=== PATIENT | female | born 1940 | race African-American/Black ===

== ENCOUNTER 2018-08-06 16:15 | Emergency (ER) | payer OTHER ==
[~2018-08-06] VITALS: Ht 170.2 cm; Wt 63.5 kg
[2018-08-06] MEDS ORDERED: LISINOPRIL5 MG ORAL (16:22)
[2018-08-06] MEDS ORDERED: FUROSEMIDE10 MG/1 M2 PO (16:23)
[2018-08-06] MEDS ORDERED: ASPIRIN-LOW81 MG ORAL (16:23)
[2018-08-06 16:25] VITALS: BP 151/93
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
[2018-08-06] MEDS ORDERED: Acetaminophen 500mg (ES) tab ORAL ONE (16:45)
[2018-08-06] MEDS ORDERED: TYLENOL EXTRA500 MG ORAL (17:20)
[2018-08-06] MEDS ORDERED: NAPROXEN500 M2 ORAL (17:20)
[2018-08-06 17:28] VITALS: BP 152/91
--- NOTE | 2018-08-07 11:32 | Diagnostic Imaging Report ---
Indication: Left sided rib pain. Trauma. Findings: 4 views of the left chest wall was obtained for evaluation of the ribs. There is no acute fracture identified. There is no soft tissue swelling demonstrated. The lung is essentially clear. There is no pneumothorax. The costophrenic angle is sharp. Other osseous structures visualized are unremarkable. Osteopenia and pacemaker are noted. Impression: Negative left unilateral rib series
== END 2018-08-06 17:28 | disposition home or self-care (01) ==
LOC: EMR 16:36
DX: S22.32XA Fracture of one rib, left side, initial encounter for closed fracture (principal); S20.212A Contusion of left front wall of thorax, initial encounter; X58.XXXA Exposure to other specified factors, initial encounter; Y92.9 Unspecified place or not applicable; I10 Essential (primary) hypertension
CPT/HCPCS: 99283